=== PATIENT | female | born 1950 | race Two or more races ===

== ENCOUNTER 2018-10-01 08:00 | Outpatient (CLI) | payer MEDICARE, BC | END 2018-10-01 23:59 | disposition home health service (06) | LOC: WOU 08:00 | PROVIDERS: ATTEND Podiatrist Foot & Ankle Surgery | DX: I87.312 Chronic venous hypertension (idiopathic) with ulcer of left lower extremity (principal); L97.825 Non-pressure chronic ulcer of other part of left lower leg with muscle involvement without evidence of necrosis; L97.828 Non-pressure chronic ulcer of other part of left lower leg with other specified severity; I89.0 Lymphedema, not elsewhere classified; I10 Essential (primary) hypertension | CPT/HCPCS: 11042; 11043; A6402 ==

== ENCOUNTER 2018-10-03 08:55 | Outpatient (CLI) | payer MEDICARE, BC | END 2018-10-03 23:59 | disposition home health service (06) | LOC: WOU 08:55 | PROVIDERS: ATTEND Specialist | DX: I89.0 Lymphedema, not elsewhere classified (principal); I87.2 Venous insufficiency (chronic) (peripheral); L97.825 Non-pressure chronic ulcer of other part of left lower leg with muscle involvement without evidence of necrosis; L97.828 Non-pressure chronic ulcer of other part of left lower leg with other specified severity; C86.3 Subcutaneous panniculitis-like T-cell lymphoma; I10 Essential (primary) hypertension; Z83.3 Family history of diabetes mellitus; E89.0 Postprocedural hypothyroidism; R06.02 Shortness of breath | CPT/HCPCS: 71046; 87070-TC; 87186-TC; A6402; G0463 ==

== ENCOUNTER 2018-10-10 11:40 | Outpatient (CLI) | payer MEDICARE, BC | END 2018-10-10 23:59 | disposition home health service (06) | LOC: WOU 11:40 | PROVIDERS: ATTEND Specialist | DX: I87.2 Venous insufficiency (chronic) (peripheral) (principal); L97.821 Non-pressure chronic ulcer of other part of left lower leg limited to breakdown of skin; C86.3 Subcutaneous panniculitis-like T-cell lymphoma; M72.6 Necrotizing fasciitis | CPT/HCPCS: 11042; A6402 ==

== ENCOUNTER 2018-10-17 10:40 | Outpatient (CLI) | payer MEDICARE, BC | END 2018-10-17 23:59 | disposition home health service (06) | LOC: WOU 10:40 | PROVIDERS: ATTEND Specialist | DX: I89.0 Lymphedema, not elsewhere classified (principal); I87.2 Venous insufficiency (chronic) (peripheral); L97.822 Non-pressure chronic ulcer of other part of left lower leg with fat layer exposed; C86.3 Subcutaneous panniculitis-like T-cell lymphoma; M72.6 Necrotizing fasciitis; I10 Essential (primary) hypertension; E89.0 Postprocedural hypothyroidism; Z79.899 Other long term (current) drug therapy | CPT/HCPCS: A6402; G0463 ==

== ENCOUNTER 2018-10-24 09:50 | Outpatient (CLI) | payer MEDICARE, BC | END 2018-10-24 23:59 | disposition home health service (06) | LOC: WOU 09:50 | PROVIDERS: ATTEND Specialist | DX: I89.0 Lymphedema, not elsewhere classified (principal); M72.6 Necrotizing fasciitis; I87.2 Venous insufficiency (chronic) (peripheral); L97.822 Non-pressure chronic ulcer of other part of left lower leg with fat layer exposed; I10 Essential (primary) hypertension; E89.0 Postprocedural hypothyroidism; Z83.3 Family history of diabetes mellitus | CPT/HCPCS: 11042; 87070-TC; 87186-TC; A6402 ==

== ENCOUNTER 2018-10-31 09:50 | Outpatient (CLI) | payer MEDICARE, BC | END 2018-10-31 23:59 | disposition home health service (06) | LOC: WOU 09:50 | PROVIDERS: ATTEND Specialist | DX: I87.312 Chronic venous hypertension (idiopathic) with ulcer of left lower extremity (principal); L97.822 Non-pressure chronic ulcer of other part of left lower leg with fat layer exposed; I89.0 Lymphedema, not elsewhere classified; I10 Essential (primary) hypertension; E89.0 Postprocedural hypothyroidism; I87.2 Venous insufficiency (chronic) (peripheral) | CPT/HCPCS: A6402; G0463; Z7610 ==

== ENCOUNTER 2018-11-07 08:30 | Outpatient (CLI) | payer MEDICARE, BC | END 2018-11-07 23:59 | disposition home health service (06) | LOC: WOU 08:30 | PROVIDERS: ATTEND Specialist | DX: I89.0 Lymphedema, not elsewhere classified (principal); I87.312 Chronic venous hypertension (idiopathic) with ulcer of left lower extremity; L97.822 Non-pressure chronic ulcer of other part of left lower leg with fat layer exposed; T81.89XD Other complications of procedures, not elsewhere classified, subsequent encounter | CPT/HCPCS: A6402; G0463 ==

== ENCOUNTER 2018-11-14 08:45 | Outpatient (CLI) | payer MEDICARE, BC | END 2018-11-14 23:59 | disposition home health service (06) | LOC: WOU 08:45 | PROVIDERS: ATTEND Specialist | DX: I87.312 Chronic venous hypertension (idiopathic) with ulcer of left lower extremity (principal); L97.822 Non-pressure chronic ulcer of other part of left lower leg with fat layer exposed; I89.0 Lymphedema, not elsewhere classified; I87.2 Venous insufficiency (chronic) (peripheral); I10 Essential (primary) hypertension; E07.9 Disorder of thyroid, unspecified; T81.89XD Other complications of procedures, not elsewhere classified, subsequent encounter | CPT/HCPCS: 11042; A6402 ==

== ENCOUNTER 2018-11-21 10:15 | Outpatient (CLI) | payer MEDICARE, BC | END 2018-11-21 23:59 | disposition home health service (06) | LOC: WOU 10:15 | PROVIDERS: ATTEND Specialist | DX: I89.0 Lymphedema, not elsewhere classified (principal); I87.312 Chronic venous hypertension (idiopathic) with ulcer of left lower extremity; L97.822 Non-pressure chronic ulcer of other part of left lower leg with fat layer exposed; Z83.3 Family history of diabetes mellitus; T81.89XD Other complications of procedures, not elsewhere classified, subsequent encounter; I87.2 Venous insufficiency (chronic) (peripheral) | CPT/HCPCS: A6402; G0463 ==

== ENCOUNTER 2018-11-28 08:47 | Outpatient (CLI) | payer MEDICARE, BC | END 2018-11-28 23:59 | disposition home health service (06) | LOC: WOU 08:47 | PROVIDERS: ATTEND Specialist | DX: I89.0 Lymphedema, not elsewhere classified (principal); I87.312 Chronic venous hypertension (idiopathic) with ulcer of left lower extremity; L97.822 Non-pressure chronic ulcer of other part of left lower leg with fat layer exposed; S81.012D Laceration without foreign body, left knee, subsequent encounter; X58.XXXD Exposure to other specified factors, subsequent encounter; E89.0 Postprocedural hypothyroidism; Z83.3 Family history of diabetes mellitus | CPT/HCPCS: 11042; 87070; A6402; 87186-TC ==

== ENCOUNTER 2018-12-05 08:55 | Outpatient (CLI) | payer MEDICARE, BC | END 2018-12-05 23:59 | disposition home health service (06) | LOC: WOU 08:55 | PROVIDERS: ATTEND Specialist | DX: I89.0 Lymphedema, not elsewhere classified (principal); L97.823 Non-pressure chronic ulcer of other part of left lower leg with necrosis of muscle; L97.822 Non-pressure chronic ulcer of other part of left lower leg with fat layer exposed; I87.312 Chronic venous hypertension (idiopathic) with ulcer of left lower extremity; T81.89XD Other complications of procedures, not elsewhere classified, subsequent encounter; I10 Essential (primary) hypertension; E89.0 Postprocedural hypothyroidism | CPT/HCPCS: 11042; 11043; 87070-TC; 87186-TC; A6402; A6407 ==

== ENCOUNTER 2018-12-12 08:55 | Outpatient (CLI) | payer MEDICARE, BC | END 2018-12-12 23:59 | disposition home health service (06) | LOC: WOU 08:55 | PROVIDERS: ATTEND Specialist | DX: I87.312 Chronic venous hypertension (idiopathic) with ulcer of left lower extremity (principal); L97.825 Non-pressure chronic ulcer of other part of left lower leg with muscle involvement without evidence of necrosis; I89.0 Lymphedema, not elsewhere classified; T81.89XD Other complications of procedures, not elsewhere classified, subsequent encounter; I87.2 Venous insufficiency (chronic) (peripheral); Z83.3 Family history of diabetes mellitus; E89.0 Postprocedural hypothyroidism; I10 Essential (primary) hypertension; Z79.890 Hormone replacement therapy | CPT/HCPCS: A6402; A6407; G0463 ==

== ENCOUNTER 2018-12-19 08:50 | Outpatient (CLI) | payer MEDICARE, BC | END 2018-12-19 23:59 | disposition home health service (06) | LOC: WOU 08:50 | PROVIDERS: ATTEND Specialist | DX: I87.312 Chronic venous hypertension (idiopathic) with ulcer of left lower extremity (principal); L97.825 Non-pressure chronic ulcer of other part of left lower leg with muscle involvement without evidence of necrosis; I10 Essential (primary) hypertension; I89.0 Lymphedema, not elsewhere classified; I87.2 Venous insufficiency (chronic) (peripheral); T81.89XD Other complications of procedures, not elsewhere classified, subsequent encounter; E07.9 Disorder of thyroid, unspecified | CPT/HCPCS: 87070; A6402; A6407; G0463 ==

== ENCOUNTER 2018-12-26 09:00 | Outpatient (CLI) | payer MEDICARE, BC | END 2018-12-26 23:59 | disposition home health service (06) | LOC: WOU 09:00 | PROVIDERS: ATTEND Specialist | DX: I87.312 Chronic venous hypertension (idiopathic) with ulcer of left lower extremity (principal); L97.825 Non-pressure chronic ulcer of other part of left lower leg with muscle involvement without evidence of necrosis; L97.822 Non-pressure chronic ulcer of other part of left lower leg with fat layer exposed; T81.89XD Other complications of procedures, not elsewhere classified, subsequent encounter; I89.0 Lymphedema, not elsewhere classified; E89.0 Postprocedural hypothyroidism; I10 Essential (primary) hypertension | CPT/HCPCS: 11042; A6209; A6402 ==

== ENCOUNTER 2019-01-02 08:55 | Outpatient (CLI) | payer MEDICARE, BC | END 2019-01-02 23:59 | disposition home health service (06) | LOC: WOU 08:55 | PROVIDERS: ATTEND Specialist | DX: I89.0 Lymphedema, not elsewhere classified (principal); I87.312 Chronic venous hypertension (idiopathic) with ulcer of left lower extremity; L97.825 Non-pressure chronic ulcer of other part of left lower leg with muscle involvement without evidence of necrosis; T81.89XD Other complications of procedures, not elsewhere classified, subsequent encounter; E89.0 Postprocedural hypothyroidism; I10 Essential (primary) hypertension | CPT/HCPCS: 87070; 87075; 87077; 87186; A6209; G0463 ==

== ENCOUNTER 2019-01-07 09:21 | Outpatient (CLI) | payer MEDICARE, BC | END 2019-01-07 23:59 | disposition home or self-care (01) | LOC: MRI 09:21 | PROVIDERS: ATTEND Specialist | DX: S83.242A Other tear of medial meniscus, current injury, left knee, initial encounter (principal); L97.823 Non-pressure chronic ulcer of other part of left lower leg with necrosis of muscle; M17.12 Unilateral primary osteoarthritis, left knee; M94.262 Chondromalacia, left knee; M25.462 Effusion, left knee; X58.XXXA Exposure to other specified factors, initial encounter; Y93.89 Activity, other specified; Y92.89 Other specified places as the place of occurrence of the external cause; Y99.8 Other external cause status | CPT/HCPCS: 73721-TC ==

== ENCOUNTER 2019-01-09 08:50 | Outpatient (CLI) | payer MEDICARE, BC | END 2019-01-09 23:59 | disposition home health service (06) | LOC: WOU 08:50 | PROVIDERS: ATTEND Specialist | DX: I89.0 Lymphedema, not elsewhere classified (principal); I87.312 Chronic venous hypertension (idiopathic) with ulcer of left lower extremity; L97.825 Non-pressure chronic ulcer of other part of left lower leg with muscle involvement without evidence of necrosis; T81.89XD Other complications of procedures, not elsewhere classified, subsequent encounter; I10 Essential (primary) hypertension; E89.0 Postprocedural hypothyroidism; M17.12 Unilateral primary osteoarthritis, left knee | CPT/HCPCS: A6402; A6407; G0463 ==

== ENCOUNTER 2019-01-16 08:55 | Outpatient (CLI) | payer MEDICARE, BC | END 2019-01-16 23:59 | disposition home health service (06) | LOC: WOU 08:55 | PROVIDERS: ATTEND Specialist | DX: I87.312 Chronic venous hypertension (idiopathic) with ulcer of left lower extremity (principal); L97.825 Non-pressure chronic ulcer of other part of left lower leg with muscle involvement without evidence of necrosis; T81.89XD Other complications of procedures, not elsewhere classified, subsequent encounter; I89.0 Lymphedema, not elsewhere classified; I10 Essential (primary) hypertension; Z83.3 Family history of diabetes mellitus | CPT/HCPCS: A6402; A6407; G0463 ==

== ENCOUNTER 2019-01-23 08:50 | Outpatient (CLI) | payer MEDICARE, BC | END 2019-01-23 23:59 | disposition home health service (06) | LOC: WOU 08:50 | PROVIDERS: ATTEND Specialist | DX: I87.312 Chronic venous hypertension (idiopathic) with ulcer of left lower extremity (principal); L97.825 Non-pressure chronic ulcer of other part of left lower leg with muscle involvement without evidence of necrosis; I89.0 Lymphedema, not elsewhere classified; T81.89XD Other complications of procedures, not elsewhere classified, subsequent encounter; I10 Essential (primary) hypertension; E89.0 Postprocedural hypothyroidism | CPT/HCPCS: G0463 ==

== ENCOUNTER 2019-01-30 08:50 | Outpatient (CLI) | payer MEDICARE, BC | END 2019-01-30 23:59 | disposition home health service (06) | LOC: WOU 08:50 | PROVIDERS: ATTEND Specialist | DX: I87.312 Chronic venous hypertension (idiopathic) with ulcer of left lower extremity (principal); L97.825 Non-pressure chronic ulcer of other part of left lower leg with muscle involvement without evidence of necrosis; T81.89XD Other complications of procedures, not elsewhere classified, subsequent encounter; I89.0 Lymphedema, not elsewhere classified; I10 Essential (primary) hypertension; E89.0 Postprocedural hypothyroidism; Z83.3 Family history of diabetes mellitus; Z84.89 Family history of other specified conditions | CPT/HCPCS: 87070; 87075; 87076; 87077; 87186; A6402; A6407; G0463 ==

== ENCOUNTER 2019-02-06 11:40 | Outpatient (CLI) | payer MEDICARE, BC | END 2019-02-06 23:59 | disposition home health service (06) | LOC: WOU 11:40 | PROVIDERS: ATTEND Specialist | DX: I89.0 Lymphedema, not elsewhere classified (principal); I87.312 Chronic venous hypertension (idiopathic) with ulcer of left lower extremity; L97.825 Non-pressure chronic ulcer of other part of left lower leg with muscle involvement without evidence of necrosis; T81.89XD Other complications of procedures, not elsewhere classified, subsequent encounter; E89.0 Postprocedural hypothyroidism | CPT/HCPCS: A6209; A6402; A6407; G0463 ==

== ENCOUNTER 2019-02-20 08:08 | Outpatient (CLI) | payer MEDICARE, BC | END 2019-02-20 23:59 | disposition home health service (06) | LOC: WOU 08:08 | PROVIDERS: ATTEND Specialist | DX: I87.312 Chronic venous hypertension (idiopathic) with ulcer of left lower extremity (principal); L97.825 Non-pressure chronic ulcer of other part of left lower leg with muscle involvement without evidence of necrosis; I89.0 Lymphedema, not elsewhere classified; T81.89XD Other complications of procedures, not elsewhere classified, subsequent encounter; I10 Essential (primary) hypertension; E89.0 Postprocedural hypothyroidism | CPT/HCPCS: A6209; A6402; G0463 ==

== ENCOUNTER 2019-03-06 08:20 | Outpatient (CLI) | payer MEDICARE, BC | END 2019-03-06 23:59 | disposition home health service (06) | LOC: WOU 08:20 | PROVIDERS: ATTEND Specialist | DX: I87.312 Chronic venous hypertension (idiopathic) with ulcer of left lower extremity (principal); L97.525 Non-pressure chronic ulcer of other part of left foot with muscle involvement without evidence of necrosis; T81.89XD Other complications of procedures, not elsewhere classified, subsequent encounter; I89.0 Lymphedema, not elsewhere classified; E89.0 Postprocedural hypothyroidism; I10 Essential (primary) hypertension; Z83.3 Family history of diabetes mellitus; Z79.890 Hormone replacement therapy | CPT/HCPCS: 11042; A6209; A6402 ==

== ENCOUNTER 2019-03-20 08:35 | Outpatient (CLI) | payer MEDICARE, BC | END 2019-03-20 23:59 | disposition home health service (06) | LOC: WOU 08:35 | PROVIDERS: ATTEND Specialist | DX: I87.312 Chronic venous hypertension (idiopathic) with ulcer of left lower extremity (principal); L97.822 Non-pressure chronic ulcer of other part of left lower leg with fat layer exposed; I89.0 Lymphedema, not elsewhere classified; T81.89XD Other complications of procedures, not elsewhere classified, subsequent encounter; E89.0 Postprocedural hypothyroidism; I10 Essential (primary) hypertension; M17.12 Unilateral primary osteoarthritis, left knee | CPT/HCPCS: 11042; A6402 ==

== ENCOUNTER 2019-04-03 08:30 | Outpatient (CLI) | payer MEDICARE, BC | END 2019-04-03 23:59 | disposition home health service (06) | LOC: WOU 08:30 | PROVIDERS: ATTEND Specialist | DX: I87.312 Chronic venous hypertension (idiopathic) with ulcer of left lower extremity (principal); L97.922 Non-pressure chronic ulcer of unspecified part of left lower leg with fat layer exposed; I89.0 Lymphedema, not elsewhere classified; I87.2 Venous insufficiency (chronic) (peripheral) | CPT/HCPCS: 11042; A6402 ==

== ENCOUNTER 2019-04-22 14:10 | Outpatient (CLI) | payer MEDICARE, BC | END 2019-04-22 23:59 | disposition home health service (06) | LOC: WOU 14:10 | PROVIDERS: ATTEND Surgery | DX: I87.312 Chronic venous hypertension (idiopathic) with ulcer of left lower extremity (principal); L97.822 Non-pressure chronic ulcer of other part of left lower leg with fat layer exposed; I89.0 Lymphedema, not elsewhere classified; I87.2 Venous insufficiency (chronic) (peripheral) | CPT/HCPCS: 11042; J3490 ==

== ENCOUNTER 2019-04-29 13:25 | Outpatient (CLI) | payer MEDICARE, BC | END 2019-04-29 23:59 | disposition home health service (06) | LOC: WOU 13:25 | PROVIDERS: ATTEND Surgery | DX: I87.312 Chronic venous hypertension (idiopathic) with ulcer of left lower extremity (principal); L97.822 Non-pressure chronic ulcer of other part of left lower leg with fat layer exposed; I87.2 Venous insufficiency (chronic) (peripheral); I89.0 Lymphedema, not elsewhere classified; E66.01 Morbid (severe) obesity due to excess calories; Z68.43 Body mass index [BMI] 50.0-59.9, adult | CPT/HCPCS: 11042 ==

== ENCOUNTER 2019-05-06 14:07 | Outpatient (CLI) | payer MEDICARE, BC | END 2019-05-06 23:59 | disposition home health service (06) | LOC: WOU 14:07 | PROVIDERS: ATTEND Surgery | DX: I87.312 Chronic venous hypertension (idiopathic) with ulcer of left lower extremity (principal); L97.822 Non-pressure chronic ulcer of other part of left lower leg with fat layer exposed; I87.2 Venous insufficiency (chronic) (peripheral); I89.0 Lymphedema, not elsewhere classified; E66.01 Morbid (severe) obesity due to excess calories; Z68.43 Body mass index [BMI] 50.0-59.9, adult | CPT/HCPCS: 11042 ==

== ENCOUNTER 2019-05-13 12:45 | Outpatient (CLI) | payer MEDICARE, BC | END 2019-05-13 23:59 | disposition home health service (06) | LOC: WOU 12:45 | PROVIDERS: ATTEND Surgery | DX: I87.312 Chronic venous hypertension (idiopathic) with ulcer of left lower extremity (principal); L97.822 Non-pressure chronic ulcer of other part of left lower leg with fat layer exposed; I89.0 Lymphedema, not elsewhere classified; I87.2 Venous insufficiency (chronic) (peripheral) | CPT/HCPCS: 11042 ==

== ENCOUNTER 2019-05-20 13:15 | Outpatient (CLI) | payer MEDICARE, BC | END 2019-05-20 23:59 | disposition home health service (06) | LOC: WOU 13:15 | PROVIDERS: ATTEND Surgery | DX: I87.312 Chronic venous hypertension (idiopathic) with ulcer of left lower extremity (principal); L97.822 Non-pressure chronic ulcer of other part of left lower leg with fat layer exposed; I89.0 Lymphedema, not elsewhere classified; I87.2 Venous insufficiency (chronic) (peripheral); E66.01 Morbid (severe) obesity due to excess calories; Z68.43 Body mass index [BMI] 50.0-59.9, adult | CPT/HCPCS: 11043 ==

== ENCOUNTER 2019-05-27 13:20 | Outpatient (CLI) | payer MEDICARE, BC | END 2019-05-27 23:59 | disposition home health service (06) | LOC: WOU 13:20 | PROVIDERS: ATTEND Surgery | DX: I87.312 Chronic venous hypertension (idiopathic) with ulcer of left lower extremity (principal); L97.822 Non-pressure chronic ulcer of other part of left lower leg with fat layer exposed; I87.2 Venous insufficiency (chronic) (peripheral); I89.0 Lymphedema, not elsewhere classified; E66.01 Morbid (severe) obesity due to excess calories; Z68.43 Body mass index [BMI] 50.0-59.9, adult; M17.12 Unilateral primary osteoarthritis, left knee | CPT/HCPCS: 11042 ==

== ENCOUNTER 2019-06-10 13:20 | Outpatient (CLI) | payer MEDICARE, BC | END 2019-06-10 23:59 | disposition home health service (06) | LOC: WOU 13:20 | PROVIDERS: ATTEND Surgery | DX: I87.312 Chronic venous hypertension (idiopathic) with ulcer of left lower extremity (principal); L97.822 Non-pressure chronic ulcer of other part of left lower leg with fat layer exposed; I89.0 Lymphedema, not elsewhere classified; I87.2 Venous insufficiency (chronic) (peripheral); M17.12 Unilateral primary osteoarthritis, left knee; E66.01 Morbid (severe) obesity due to excess calories; Z68.43 Body mass index [BMI] 50.0-59.9, adult | CPT/HCPCS: 11043; A6407; J3490 ==

== ENCOUNTER 2019-06-17 13:59 | Outpatient (CLI) | payer MEDICARE, BC | END 2019-06-17 23:59 | disposition home health service (06) | LOC: WOU 13:59 | PROVIDERS: ATTEND Surgery | DX: I87.312 Chronic venous hypertension (idiopathic) with ulcer of left lower extremity (principal); L97.822 Non-pressure chronic ulcer of other part of left lower leg with fat layer exposed; I87.2 Venous insufficiency (chronic) (peripheral); I89.0 Lymphedema, not elsewhere classified; E66.01 Morbid (severe) obesity due to excess calories; Z68.43 Body mass index [BMI] 50.0-59.9, adult | CPT/HCPCS: 11043 ==

== ENCOUNTER 2019-06-24 12:00 | Outpatient (CLI) | payer MEDICARE, BC | END 2019-06-24 23:59 | disposition home health service (06) | LOC: WOU 12:00 | PROVIDERS: ATTEND Surgery | DX: I87.312 Chronic venous hypertension (idiopathic) with ulcer of left lower extremity (principal); L97.822 Non-pressure chronic ulcer of other part of left lower leg with fat layer exposed; I87.2 Venous insufficiency (chronic) (peripheral); I89.0 Lymphedema, not elsewhere classified; E66.01 Morbid (severe) obesity due to excess calories; Z68.43 Body mass index [BMI] 50.0-59.9, adult | CPT/HCPCS: 11043 ==

== ENCOUNTER 2019-07-08 12:35 | Outpatient (CLI) | payer MEDICARE, BC | END 2019-07-08 23:59 | disposition home health service (06) | LOC: WOU 12:35 | PROVIDERS: ATTEND Surgery | DX: I87.312 Chronic venous hypertension (idiopathic) with ulcer of left lower extremity (principal); L97.822 Non-pressure chronic ulcer of other part of left lower leg with fat layer exposed; I89.0 Lymphedema, not elsewhere classified; I87.2 Venous insufficiency (chronic) (peripheral); E66.01 Morbid (severe) obesity due to excess calories; Z68.43 Body mass index [BMI] 50.0-59.9, adult | CPT/HCPCS: 11043 ==

== ENCOUNTER 2019-07-15 12:00 | Outpatient (CLI) | payer MEDICARE, BC | END 2019-07-15 23:59 | disposition home health service (06) | LOC: WOU 12:00 | PROVIDERS: ATTEND Surgery | DX: I87.312 Chronic venous hypertension (idiopathic) with ulcer of left lower extremity (principal); L97.822 Non-pressure chronic ulcer of other part of left lower leg with fat layer exposed; I89.0 Lymphedema, not elsewhere classified; I87.2 Venous insufficiency (chronic) (peripheral); E66.01 Morbid (severe) obesity due to excess calories; Z68.43 Body mass index [BMI] 50.0-59.9, adult | CPT/HCPCS: 11042 ==

== ENCOUNTER 2019-07-22 12:45 | Outpatient (CLI) | payer MEDICARE, BC | END 2019-07-22 23:59 | disposition home health service (06) | LOC: WOU 12:45 | PROVIDERS: ATTEND Surgery | DX: I87.312 Chronic venous hypertension (idiopathic) with ulcer of left lower extremity (principal); L97.822 Non-pressure chronic ulcer of other part of left lower leg with fat layer exposed; I89.0 Lymphedema, not elsewhere classified; I87.2 Venous insufficiency (chronic) (peripheral); E66.01 Morbid (severe) obesity due to excess calories; Z68.43 Body mass index [BMI] 50.0-59.9, adult | CPT/HCPCS: 11042; G0463 ==

== ENCOUNTER 2019-07-29 12:50 | Outpatient (CLI) | payer MEDICARE, BC | END 2019-07-29 23:59 | disposition home health service (06) | LOC: WOU 12:50 | PROVIDERS: ATTEND Surgery | DX: I89.0 Lymphedema, not elsewhere classified (principal); I87.2 Venous insufficiency (chronic) (peripheral); E66.01 Morbid (severe) obesity due to excess calories; Z68.43 Body mass index [BMI] 50.0-59.9, adult; M17.12 Unilateral primary osteoarthritis, left knee | CPT/HCPCS: G0463 ==

== ENCOUNTER 2019-08-05 13:30 | Outpatient (CLI) | payer MEDICARE, BC | END 2019-08-05 23:59 | disposition home health service (06) | LOC: WOU 13:30 | PROVIDERS: ATTEND Surgery | DX: I87.2 Venous insufficiency (chronic) (peripheral) (principal); I89.0 Lymphedema, not elsewhere classified; E66.01 Morbid (severe) obesity due to excess calories; Z68.43 Body mass index [BMI] 50.0-59.9, adult | CPT/HCPCS: G0463 ==

== ENCOUNTER 2019-09-09 09:00 | Outpatient (CLI) | payer MEDICARE, BC | END 2019-09-09 23:59 | disposition home health service (06) | LOC: WOU 09:00 | PROVIDERS: ATTEND Surgery | DX: I89.0 Lymphedema, not elsewhere classified (principal); I87.2 Venous insufficiency (chronic) (peripheral); E66.01 Morbid (severe) obesity due to excess calories; Z68.43 Body mass index [BMI] 50.0-59.9, adult | CPT/HCPCS: G0463 ==